=== PATIENT | male | born 1995 ===

== ENCOUNTER 2022-11-16 10:46 | Emergency (ER) | payer SELFPAY ==
--- NOTE | ~2022-11-16 | XR_ITS ---
XR chest 2V DATE: 11/16/2022 11:15 INDICATION: Chest pain, left arm pain TECHNIQUE: 2 views COMPARISON: None FINDINGS: Normal heart size. No hilar or mediastinal enlargement. No pulmonary infiltrate or consolid ation, pleural effusion or pulmonary vascular congestion or pneumothorax. IMPRESSION: Negative Reviewed, dictated and finalized at location B. IMPRESSION: Negative
[2022-11-16 11:01] VITALS: BP 139/84; PULSE 74; RESP 16; TEMP 36.7; O2SAT 100
--- NOTE | 2022-11-16 11:04 | ECG_ITS ---
Measurements Intervals [place] Rate: 83 P: 20 NH: 140 QRS: 66 QRSD: 107 T: 15 QT: 364 QTc: 429 Interpretive Statements SINUS RHYTHM NORMAL ECG NO PREVIOUS ECG AVAILABLE FOR COMPARISON Electronically Signed On 11-16-2022 12:04:08 CDT by Blane Laguna D.O.
--- NOTE | 2022-11-16 11:05 | ED.CHESTPAIN ---
HPI - Chest Pain General Chief Complaint: Chest Pain Stated Complaint: left side feels strange/chest arm Source: patient and RN notes reviewed History of Present Illness HPI narrative: 27 yo M Presents to urgent care with complaints of left sided chest pain that radiates down his left arm. Pt states this has been going on since Saturday. Pt states he feels SOB as well. Pt reports feeling weird. Denies any dizziness, fevers, chills, cough, N/V/D, congestion, or other cold symptoms. Pt has not taken anything for his symptoms. Pt denies any significant cardiac family hx. Related Data Home Medications Medication Instructions Recorded Confirmed No Home Medications 11/16/22 11/16/22 Allergies Allergy/AdvReac Type Severity Reaction Status Date / Time No Known Allergies Allergy Verified 11/16/22 11:12 Review of Systems Review of Systems: CONSTITUTIONAL: Denies fever, chills, or sweats. EYES: Denies visual changes, redness, or discharge. ENT: Denies otalgia and sore throat CARDIOVASCULAR: Left-sided chest pain RESPIRATORY: Denies cough or dyspnea. GASTROINTESTINAL: Denies abdominal pain, nausea, vomiting, or diarrhea. GENITOURINARY: Denies dysuria or hematuria. SKIN: Denies rash or itching. MUSCULOSKELETAL: Denies back pain, joint pain, or myalgia. NEUROLOGIC: Denies headache, numbness, or weakness. Pertinent positives per HPI. PMFSH Comments At the time of my signature, I reviewed and agree with the nursing past medical, surgical, social, and family history. There is no relevant family history pertinent to the patient complaint. Exam Narrative: GENERAL: This is a well-nourished, well-developed patient, in no apparent distress. HEAD: normocephalic, atraumatic. EYES: Sclera clear/white. Vision is grossly intact. EARS: External ears normal, auditory canals clear and without drainage, TMs normal without perforation. Hearing grossly intact. NOSE: External nose normal with no obvious nasal discharge, nares without redness, no rhinorrhea. THROAT: Mucous membranes moist, posterior pharynx clear. NECK: Neck supple, non-tender without lymphadenopathy, masses or thyromegaly. CARDIOVASCULAR: Regular rate and rhythm without murmurs, gallops, or rubs. RESPIRATORY: Clear to auscultation. Breath sounds equal bilaterally. No wheezes, rales, or rhonchi. GASTROINTESTINAL: Abdomen soft, non-tender, nondistended. Bowel sounds are active. No hepato-splenomegaly, or palpable masses. No guarding. SKIN: warm, intact with no suspicious lesions or rash, good texture and turgor. NEURO: awake, alert, and oriented to person, place and time. There were no obvious focal neurologic abnormalities. EXTREMITIES: No clubbing, cyanosis, or edema. No joint tenderness, effusion, or edema noted. Course Course Level of Care: Express Care Visit Vital Signs Vital signs: Vital Signs Temperature 98.1 F 11/16/22 11:01 Pulse Rate 74 11/16/22 11:01 Respiratory Rate 16 11/16/22 11:01 Blood Pressure 139/84 11/16/22 11:01 Pulse Oximetry 100 11/16/22 11:01 Oxygen Delivery Room Air 11/16/22 11:01 Temperature 98.1 F 11/16/22 11:01 Pulse Rate 74 11/16/22 11:01 Respiratory Rate 16 11/16/22 11:01 Blood Pressure 139/84 11/16/22 11:01 Pulse Oximetry 100 11/16/22 11:01 Oxygen Delivery Room Air 11/16/22 11:01 Reviewed MDM - Chest Pain MDM Narrative Medical decision making narrative: If you develop any new or worsening symptoms or you develop chest pain again, you need to go to the emergency dept to be evaluated. Pt stating his arm is no longer hurting him and his symptoms are better after xray and EKG. Pt informed to be sure he is not having a cardiac event, he would have to be evaluated in the ER. Pt gives verbal understanding and agrees to go to the ER with any new or worsening symptoms. Differential Diagnosis Differential diagnosis: Likely costochondritis, chest pain and other (pna) Imaging Data Radiologis
== END 2022-11-16 11:45 | disposition home or self-care (01) ==
PROVIDERS: Emergency Provider Nurse Practitioner Family; PCP Emergency Medicine
DX: R07.9 Chest pain, unspecified (principal)
CPT/HCPCS: 71046; 93005; 99213; G0463